=== PATIENT | male | born 1995 | race Caucasian/White ===

== ENCOUNTER 2019-09-09 23:03 | Emergency (ER) | payer SELFPAY ==
[~2019-09-09 23:03] MED LIST: AMOX500 PO; NAPR500 PO; PENVK500 PO
== END 2019-09-09 23:45 | disposition home or self-care (01) ==
DX: M43.6 Torticollis (principal); Z87.891 Personal history of nicotine dependence

== ENCOUNTER 2020-12-02 18:45 | Emergency (ER) | payer SELFPAY ==
[~2020-12-02] VITALS: Ht 177.8 cm; Wt 79.4 kg
[2020-12-02] MEDS ORDERED: CEPH500 PO (19:50)
[2020-12-02] MEDS ORDERED: SULTRIDS PO (19:50)
== END 2020-12-02 20:16 | disposition home or self-care (01) ==
LOC: ER 18:45
DX: L25.5 Unspecified contact dermatitis due to plants, except food (principal); J45.909 Unspecified asthma, uncomplicated; Z87.891 Personal history of nicotine dependence
CPT/HCPCS: 96372; 99283-25; A9270; J3301